=== PATIENT | female | born 1960 | race Caucasian/White ===

== ENCOUNTER 2020-06-27 23:50 | Emergency (ER) | payer BC, OTHER ==
[~2020-06-27] VITALS: Ht 162.6 cm; Wt 89.3 kg
--- NOTE | 2020-06-28 | ED Head Injury ---
General Chief Complaint: Head/Cervical Problems Stated Complaint: FALL HEAD INJ Source: patient History of Present Illness Date Seen by Provider: Jun 28, 2020 Time Seen by Provider: 00:00 Initial Comments 59 yo female presents to the ED after having a fall at home. she states she had a tetanus update in March when she fell and had a laceration to left eyebrow. She denies loss of consciousness or taking any blood thinners. She has no neck pain or change in her vision. she denies any nausea or vomiting. She admits to drinking beer on a daily basis. She recently moved to [facility] and has not established care with a pcp yet. Allergies and Home Medications Allergies Coded Allergies: No Known Drug Allergies (Unverified , 06/28/20) Patient Home Medication List Home Medication List Reviewed: Yes Review of Systems Review of Systems Constitutional: No chills, No dizziness, No fever Eyes: Denies Blurred Vision, Denies Tunnel Vision, Denies Vision Changes Ears, Nose, Mouth, Throat: denies ear discharge; nose pain, epistaxis (since fall); denies mouth pain, denies mouth swelling, denies loose teeth Respiratory: no symptoms reported Cardiovascular: no symptoms reported Gastrointestinal: no symptoms reported Genitourinary: no symptoms reported Musculoskeletal: no symptoms reported Skin: see HPI Psychiatric/Neurological: Headache Endocrine: No Symptoms Reported Hematologic/Lymphatic: No Symptoms Reported Past Cffnolg-Vwsljo-Sezasb Hx Past Med/Social Hx: Reviewed Nursing Past Med/Soc Hx Patient Social History Recent Foreign Travel: No Contact w/Someone Who Travel: No Past Medical History Neurological: Yes (restless legs syndrome) Physical Exam Vital Signs Vital Signs - First Documented 06/28/20 00:02 Temp 36.5 Pulse 98 Resp 16 B/P (MAP) 156/89 (111) Pulse Ox 99 O2 Delivery Room Air Capillary Refill : Height, Weight, BMI Height: '" Weight: lbs. oz. kg; BMI Method: General Appearance: WD/WN, no apparent distress HEENT: PERRL/EOMI, TMs normal, pharynx normal; No photophobia; other (abrasion to nose, abrasion to right forehead with laceration, laceration to right lateral eyebrow. Small amount of blood in tip of nares bilaterally but no septal hematoma seen on either side) Neck: non-tender, full range of motion, supple, normal inspection Cardiovascular: normal peripheral pulses, regular rate, rhythm Respiratory: chest non-tender, lungs clear, normal breath sounds Gastrointestinal: normal bowel sounds, soft, no pulsatile mass Extremities: normal range of motion, normal capillary refill Psychiatric: alert, oriented x 3 [place] Nerves: normal hearing, normal speech, PERRL Coordination/Gait: normal gait Motor/Sensory: no motor deficit, no sensory deficit Skin: normal color, warm/dry, other (deep abrasions to nose x 2, laceration to right lateral eyebrow, abrasion to right forehead with laceration ) [place] Coma Score Best Eye Response: (4) Open Spontaneously Best Verbal Response: (5) Oriented Best Motor Response: (6) Obeys Commands [place] Total: 15 Images 1 - 1.7 cm laceration 2 - irregular laceration 2.2 cm in center of abraded area on right forehead 3 - 1.3 cm deep abrasion bridge of nose 4 - 1.1 cm deep abrasion on tip of nose Procedures/Interventions Wound Location: Face (right forehead) Wound Length (cm): 2.2 Wound's Depth, Shape: irregular, contused tissue Wound Explored: clean Progress the wound was cleaned with a chlorhexidine scrub brush. Then using surgical glue the wound edges were approximated and fixed in place. Then quarter-inch Steri- Strips were placed over the surgical glue. Patient was counseled on follow-up and return precautions. Wound Location: Face (lateral right eyebrow) Wound Length (cm): 1.7 Wound's Depth, Shape: superficial Wound Explored: clean Progress the wound was cleaned with a chlorhexidine scrub brush. Then using surgical glue the wound edges were approximated and fixed in place. Then quarter-inch Steri- Strips were placed over the surgical glue. Patient was counseled on follow-up and return precautions. Progress/Results/Core Measures Results/Orders Vital Signs/I&O 06/28/20 00:02 Temp 36.5 Pulse 98 Resp 16 B/P (MAP) 156/89 (111) Pulse Ox 99 O2 Delivery Room Air Progress Progress Note : Progress Note the deeper lacerations on the forehead and right lateral eyebrow were repaired using surgical glue and steri strips. The deep abrasions on the nose were not deep enough to need stitched. Counseled on follow up and return precautions. Departure Impression Primary Impression: Facial abrasion Qualified Codes: S00.81XA - Abrasion of other part of head, initial encounter Additional Impressions: Facial laceration Qualified Codes: S01.81XA - Laceration without foreign body of other part of head, initial encounter Laceration of eyebrow, right Qualified Codes: S01.111A - Laceration without foreign body of right eyelid and periocular area, initial encounter Nose abrasion Qualified Codes: S00.31XA - Abrasion of nose, initial encounter Contusion of nose, initial encounter Fall Qualified Codes: W19.XXXA - Unspecified fall, initial encounter Facial contusion Qualified Codes: S00.83XA - Contusion of other part of head, initial encounter Disposition: HOME, SELF-CARE Condition: Stable Departure-Patient Inst. Decision time for Depature: 01:26 Referrals: HAIDER DUNCAN MD NO,LOCAL PHYSICIAN (PCP) Primary Care Physician [facility] Patient Instructions: Laceration Repair With Glue (DC), Wound Care (DC), Skin Abrasions (DC), Contusion (DC) Add. Discharge Instructions: Sleep with your head elevated at 30-45 Degrees for the first 2-3 nights to help limit swelling and bleeding. Ice 15-20 minutes every few hours as needed to help with pain and swelling. Keep the wounds clean with soap and water. May apply antibiotic ointment to the wounds on your nose but keep the eyebrow and forehead wounds clean with soap and water only. If you apply antibiotic ointment to these wounds the tape and glue will fall off too early. Check with Dr. Duncan in ENT clinic if continued problems with nose pain and bleeding. Establish care with primary clinic for continued problems and concerns. All discharge instructions reviewed with patient and/or family. Voiced understanding. SHAWN WISEMAN MD Jun 28, 2020 00:00
[2020-06-28 01:30] VITALS: BP 156/89
== END 2020-06-28 01:30 | disposition home or self-care (01) ==
LOC: ER FS 23:54
DX: S01.111A Laceration without foreign body of right eyelid and periocular area, initial encounter (principal); S01.81XA Laceration without foreign body of other part of head, initial encounter; R40.2410 Glasgow coma scale score 13-15, unspecified time; W19.XXXA Unspecified fall, initial encounter; Y92.009 Unspecified place in unspecified non-institutional (private) residence as the place of occurrence of the external cause
CPT/HCPCS: 12052